=== PATIENT | female | born 1955 | race Caucasian/White ===

== ENCOUNTER 2021-09-25 21:09 | Emergency (ER) | payer OTHER, SELFPAY ==
--- NOTE | ~2021-09-25 | CT_ITS ---
EXAMINATION: CT ABDOMEN AND PELVIS WITH CONTRAST CLINICAL INFORMATION: Back pain, hematuria. COMPARISON: 03/04/2008 TECHNIQUE: Multidetector volumetric images were obtained from the superior aspect of the liver through the pubic symphysis following administration 85 mL of Omnipaque 350 intravenous contrast. Sagittal and coronal reformatted images were obtained on the technologist's workstation. Oral contrast: No This CT examination was performed using dose optimization techniques as appropriate, variously including the following: *Automated exposure control *Adjustment of mA and/or kV according to patient size (this includes techniques or standardized protocols for targeted exams where dose is matched to indication/reason for exam; i.e. extremities or head) *Use of iterative reconstruction technique DLP: 485 mGy-cm FINDINGS: LUNG BASES: Small sliding-type hiatal hernia. Lung bases are clear. LIVER, GALLBLADDER, AND BILIARY TREE: The liver is normal in size, shape, and attenuation. No focal hepatic lesion or biliary ductal dilatation is present. The gallbladder is unremarkable with no evidence of radiopaque gallstones, gallbladder wall thickening, or obvious pericholecystic inflammatory changes. PANCREAS: Unremarkable. SPLEEN: Unremarkable. ADRENAL GLANDS: Unremarkable. KIDNEYS AND URETERS: The kidneys are normal in size, shape, and attenuation. No hydronephrosis, hydroureter, or calculi seen. No perinephric stranding. BLADDER: Unremarkable. GASTROINTESTINAL TRACT: Small sliding-type hiatal hernia. Stomach, small bowel, and colon are normal in caliber. There is marked diverticulosis in the sigmoid colon and within the remainder of the colon to a lesser extent. There is focal peridiverticular inflammation in the distal sigmoid colon as seen on coronal image 54/77 of series 7 which likely corresponds to a component of mild acute diverticulitis. No abscess. No intraperitoneal free fluid or free air. ABDOMINAL WALL: No significant hernia is appreciated. LYMPH NODES: Normal. VASCULAR: Atherosclerotic calcifications are present in the abdominal aorta and iliac arteries. No aneurysmal dilatation. PELVIC VISCERA: The uterus and adnexa are unremarkable. OSSEOUS STRUCTURES: Degenerative disc disease is present in the lumbar spine with left convex lumbar curvature. Facet arthropathy. CT/CT abdomen pelvis w con IMPRESSION: 1. Marked sigmoid diverticulosis with mild acute uncomplicated diverticulitis. 2. Small sliding-type hiatal hernia. 3. Left convex lumbar scoliosis with multilevel degenerative disc disease, most notably in the lower lumbar spine.
--- NOTE | ~2021-09-25 | XR_ITS ---
EXAMINATION: XR CHEST CLINICAL INFORMATION: Chest pain. COMPARISON: CT of the chest dated from 10/21/2014. TECHNIQUE: Frontal view of the chest was obtained. FINDINGS: Normal appearance of the cardiomediastinal silhouette except for some atherosclerotic disease in the aortic arch. No focal airspace opacities, pleural effusions or pneumothorax. No acute osseous abnormalities. The imaged upper abdomen is within normal limits. XR/XR chest 1V IMPRESSION: No acute cardiopulmonary findings.
[2021-09-25 21:15] VITALS: BP 182/92; PULSE 105; RESP 18; TEMP 37.2; O2SAT 98; BMI 24.1
--- NOTE | 2021-09-25 21:22 | ECG_ITS ---
Test Reason : HYPERTENSION Blood Pressure : / mmHG Vent. Rate : 098 BPM Atrial Rate : 098 BPM P-R Int : 122 ms QRS Dur : 068 ms QT Int : 342 ms P-R-T Axes : 063 041 058 degrees QTc Int : 436 ms Normal sinus rhythm Nonspecific ST and T wave abnormality Abnormal ECG When compared with ECG of 11-OCT-2014 22:05, No significant change was found Referred By: Generic ED Physician Electronically Signed By:Cristian Rodriguez
[2021-09-25 21:50] LABS: MANUAL DIFF FLAG NO
[2021-09-25 21:52] LABS: Basophils Percent Auto 0.2 % (0-2); Eosinophils Absolute Auto 0.1 X10*3/uL (0.0-0.4); Eosinophils Percent Auto 1.8 % (0-4); Hematocrit 30.1 % (37.0-47.0); Hemoglobin 9.7 g/dl (12.0-16.0); Imm Gran Abs Auto 0.03 X10*3/uL (0.00-0.03); Imm Gran Pct Auto 0.6 % (0.0-0.4); Lymphocytes Absolute Auto 1.5 X10*3/uL (1.2-4.9); Lymphocytes Percent Auto 30.8 % (20-40); Mean Corpuscular HGB Conc 32.2 g/dl (31.0-35.0); Mean Corpuscular Hemoglobin 31.2 pg (27.0-33.0); Mean Corpuscular Volume 96.8 fL (80.0-98.0); Mean Platelet Volume 8.7 fL (9.4-12.3); Monocytes Absolute Auto 0.3 X10*3/uL (0.1-1.2); Monocytes Percent Auto 6.3 % (2-11); Neutrophils Percent Auto 60.3 % (45-73); Platelet Count 345 X10*3/uL (160-400); Red Blood Count 3.11 X10*6/uL (4.20-5.50); Red Cell Distribution Width 15.6 % (11.0-16.0)
[2021-09-25 22:07] LABS: Anion Gap 12 (12-20); Blood Urea Nitrogen 15 mg/dL (9-16); Calcium 10.7 mg/dL (8.4-10.2); Carbon Dioxide 24 mmol/L (22-29); Chloride 103 mmol/L (96-108); Creatinine Clr Calc Pharmacy 67.2; Estimated Glomerular Filt Rate > 60; Glucose Random 110 mg/dL (60-115); Potassium 3.9 mmol/L (3.3-5.1); Sodium 135 mmol/L (135-145)
[2021-09-25 22:07] LABS: COVID-19 Test Negative (Negative)
[2021-09-25 22:11] LABS: B Type Natriuretic Peptide 33 pg/mL (<100); Troponin-I High Sensitivity < 3.5 ng/L (<3.5-17.0)
[2021-09-26 02:58] VITALS: BP 149/89; PULSE 91; RESP 16; TEMP 36.7; O2SAT 98
[2021-09-26 03:15] LABS: Appearance Urine CLOUDY; Color Urine RED; Glucose Urine UA NEG (NEG); Leukocyte Esterase Urine 2+ (NEG); Nitrite Urine NEG (NEG); PH 6.5 (5.0-8.0); UACC Culture Trigger YES; Urine Blood 3+ (NEG); Urine Ketones NEG (NEG); Urine Protein 1+ MG/DL (NEG-TRACE)
[2021-09-26 03:22] LABS: Bacteria Urine TRACE /LPF; Mucus Urine 1+ /LPF; Squamous Epithelial Cell Urine 2+ /LPF
--- NOTE | 2021-09-26 03:41 | ED_ITS ---
HPI - General Adult General Chief complaint: Dyspnea Stated complaint: hypertension; difficulty breathing Time Seen by Provider: 09/26/21 03:40 Source: patient Mode of arrival: ambulatory History of Present Illness HPI narrative: 65-year-old female who states that she was recently started on a 2nd antihypertensive and states that since being started on the medications she noticed that she began having hematuria but denies any palpitations, dizziness, fatigue, but states that she has been experiencing concomitant wheeze that she associates with her chronic bronchitis that has not been relieved by home inhaler use. However, patient tells me that she used her ProAir while waiting in the waiting room and has since had resolution of her symptoms. Otherwise, she denies any fever, chills, nausea, vomiting, diarrhea, urinary pain/burn ing/frequency. Related Data Previous Rx's Medication Instructions Recorded amoxicillin 875 mg-potassium 1 tab PO Q12H 10 Days #20 tab 09/26/21 clavulanate 125 mg tablet Allergies Allergy/AdvReac Type Severity Reaction Status Date / Time No Known Allergies [NKA] Allergy Unverified 03/24/20 15:19 Review of Systems Review of Systems: Pertinent positives and negatives as stated in HPI 10 point review of systems is otherwise negative. PMFSH Past Medical History Source: nursing notes reviewed Medical History Chronic bronchiolitis Hepatitis Pulmonary embolism Surgical History H/O: hysterectomy Social History Social History Advance Directives: No Advance Directives Information Provided: Yes Physical Exam ED Vital Signs: Vital Signs - 24 hr 09/25/21 21:15 09/26/21 02:58 09/26/21 04:26 Temperature 99 F 98.1 F Pulse Rate 105 H 91 96 Respiratory Rate 18 16 Blood Pressure 182/92 H 149/89 H Pulse Oximetry 98 98 09/26/21 04:56 09/26/21 06:00 Temperature 98.0 F Pulse Rate 99 91 Respiratory Rate 12 14 Blood Pressure 140/79 H 127/71 Pulse Oximetry 95 97 BMI result Body Mass Index 24.1 VITAL SIGNS: Reviewed. GENERAL: Well developed, well nourished, in no acute distress. HEAD: Normocephalic/atraumatic EYES: PERRLA, EOMI EARS: Ext canals without abnormality, TMs non-bulging and non-erythematous NOSE: Nares patent bilateral OROPHARYNX: no oral lesions noted, posterior pharynx clear LUNGS: Good inspiratory effort, expiratory wheeze noted. No tachypnea. SpO2<98> CARDIOVASCULAR: Regular rate and rhythm without noted murmurs ABDOMEN: Soft, non-tender, non-distended with bowel sounds. MUSCULOSKELETAL: No tenderness, deformities, or effusions noted on gross inspection. EXTREMITIES: No cyanosis, clubbing or edema. SKIN: Inspection of the skin reveals no rashes NEUROLOGIC: Alert and oriented x 4. Strength and sensation to light touch were grossly intact x 4. Course Course Course Narrative: 65-year-old female with history and clinical presentation consistent with hematuria and noted wbc's raising the question whether not this is they significant pyelonephritis although there are no associated nausea and vomiting and patient has no fever chills. Will obtain abdomen pelvis CT. Review of all investigations shows a normocytic anemia and on CT scan reportedly diverticulitis. Patient received initial antibiotics here in the emergency room and then was discharged in stable condition with remaining course. In addition, due to patient's level of hematuria patient will be provided with a referral to follow-up with Urology. Medical Decision Making Lab Data Result diagrams: 09/25/21 21:44 09/25/21 21:44 Labs: Lab Results 09/25/21 09/25/21 09/25/21 Range/Units 21:43 21:44 21:44 WBC 5.0 (4.8-10.8) X10*3/uL RBC 3.11 L (4.20-5.50) X10*6/uL Hgb 9.7 L (12.0-16.0) g/dl Hct 30.1 L (37.0-47.0) % MCV 96.8 (80.0-98.0) fL MCH 31.2 (27.0-33.0) pg MCHC 32.2 (31.0-35.0) g/dl RDW 15.6 (11.0-16.0) % Plt Count 345 (160-400) X10*3/uL MPV 8.7 L (9.4-12.3) fL Immature Gran % (Auto) 0.6 H (0.0-0.4) % Neut % (Auto) 60.3 (45-73) % Lymph % (Auto) 30.8 (20-40) % [place] % (Auto) 6.3 (2-11) % Eos % (Auto) 1.8 (0-4) % Baso % (Auto) 0.2 (0-2) % Lymph # (Auto) 1.5 (1.2-4.9) X10*3/uL [place] # (Auto) 0.3 (0.1-1.2) X10*3/uL Eos # (Auto) 0.1 (0.0-0.4) X10*3/uL Baso # (Auto) 0.0 (0.0-0.2) X10*3/uL Abs Immat Gran (auto) 0.03 (0.00-0.03) X10*3/uL Absolute Neuts (auto) 3.0 (2.0-8.3) x10*3/uL Absolute Nucleated RBC 0.000 (0.0-0.012) X10*3/uL Nucleated RBC % (auto) 0.0 (0.0-0.2) /100WBC Sodium 135 (135-145) mmol/L Potassium 3.9 (3.3-5.1) mmol/L Chloride 103 (96-108) mmol/L Carbon Dioxide 24 (22-29) mmol/L Anion Gap 12 (12-20) BUN 15 (9-16) mg/dL Creatinine 0.74 (0.5-1.4) mg/dL Estim Creat Clear Calc 67.2 Estimated GFR > 60 Random Glucose 110 (60-115) mg/dL Calcium 10.7 H (8.4-10.2) mg/dL Troponin I High Sens (<3.5-17.0) ng/L B-Natriuretic Peptide (<100) pg/mL Urine Color Urine Appearance Urine pH (5.0-8.0) Ur Specific [place] (1.005-1.025) Urine Protein (NEG-TRACE) MG/DL Urine Glucose (UA) (NEG) MG/DL Urine Ketones (NEG) MG/DL Urine Blood (NEG) Urine Nitrite (NEG) Ur Leukocyte Esterase (NEG) Urine RBC (0) /HPF Urine WBC (0-4) /HPF Ur Squamous Epith Cells /LPF Urine Bacteria /LPF Urine Mucus /LPF COVID-19 ([facility]) Negative (Negative) COVID-19 Clin Com See Note 09/25/21 09/26/21 Range/Units 21:44 03:08 WBC (4.8-10.8) X10*3/uL RBC (4.20-5.50) X10*6/uL Hgb (12.0-16.0) g/dl Hct (37.0-47.0) % MCV (80.0-98.0) fL MCH (27.0-33.0) pg MCHC (31.0-35.0) g/dl RDW (11.0-16.0) % Plt Count (160-400) X10*3/uL MPV (9.4-12.3) fL Immature Gran % (Auto) (0.0-0.4) % Neut % (Auto) (45-73) % Lymph % (Auto) (20-40) % [place] % (Auto) (2-11) % Eos % (Auto) (0-4) % Baso % (Auto) (0-2) % Lymph # (Auto) (1.2-4.9) X10*3/uL [place] # (Auto) (0.1-1.2) X10*3/uL Eos # (Auto) (0.0-0.4) X10*3/uL Baso # (Auto) (0.0-0.2) X10*3/uL Abs Immat Gran (auto) (0.00-0.03) X10*3/uL Absolute Neuts (auto) (2.0-8.3) x10*3/uL Absolute Nucleated RBC (0.0-0.012) X10*3/uL Nucleated RBC % (auto) (0.0-0.2) /100WBC Sodium (135-145) mmol/L Potassium (3.3-5.1) mmol/L Chloride (96-108) mmol/L Carbon Dioxide (22-29) mmol/L Anion Gap (12-20) BUN (9-16) mg/dL Creatinine (0.5-1.4) mg/dL Estim Creat Clear Calc Estimated GFR Random Glucose (60-115) mg/dL Calcium (8.4-10.2) mg/dL Troponin I High Sens < 3.5 (<3.5-17.0) ng/L B-Natriuretic Peptide 33 (<100) pg/mL Urine Color RED A Urine Appearance CLOUDY Urine pH 6.5 (5.0-8.0) Ur Specific [place] 1.020 (1.005-1.025) Urine Protein 1+ H (NEG-TRACE) MG/DL Urine Glucose (UA) NEG (NEG) MG/DL Urine Ketones NEG (NEG) MG/DL Urine Blood 3+ H (NEG) Urine Nitrite NEG (NEG) Ur Leukocyte Esterase 2+ H (NEG) Urine RBC 76-150 H (0) /HPF Urine WBC 10-14 H (0-4) /HPF Ur Squamous Epith Cells 2+ /LPF Urine Bacteria TRACE /LPF Urine Mucus 1+ /LPF COVID-19 ([facility]) (Negative) COVID-19 Clin Com Discharge Plan Discharge Clinical Impression: Hematuria, Diverticulitis Patient Disposition: Home, Self-Care Instructions: Diverticulitis (ED), Hematuria (ED), Diverticulitis Diet (ED) Additional Instructions: 1. Resume all home medications. 2. Complete the entire course of antibiotics. 3. Please follow-up with your primary care provider this morning by calling the office and setting up an appointment for re-evaluation. 4. You have been provided with a referral to follow-up with Urology regarding the blood in your urine. Continue to stay well hydrated, especially with water. Return to the ER for worsening symptoms. Prescriptions: New amoxicillin-pot clavulanate 875-125 mg tablet 1 tab PO Q12H 10 Days Qty: 20 0RF Referrals: Issa Busch MD [Primary Care Provider] - 2 days Jerardo Simons MD [Physician] - 2 days
[2021-09-26] MEDS: Albuterol Sulfate (0.083%) 2.5 MG/3 ML VIAL.NEB 5 MG INHALE (04:24)
[2021-09-26 04:26] VITALS: PULSE 96; O2SAT 98
[2021-09-26] MEDS: iohexoL 350 MG/ML 100 ML INFUS..BTL 85 ML IV (04:49)
[2021-09-26 04:56] VITALS: BP 140/79; PULSE 99; RESP 12; TEMP 36.7; O2SAT 95
[2021-09-26] MEDS: Amoxicillin/Potassium Clav 875 MG TABLET PO (05:53)
[2021-09-26 06:00] VITALS: BP 127/71; PULSE 91; RESP 14; O2SAT 97
== END 2021-09-26 06:13 | disposition home or self-care (01) ==
PROVIDERS: Emergency Provider Student in an Organized Health Care Education/Training Program; PCP Internal Medicine
DX: K57.32 Diverticulitis of large intestine without perforation or abscess without bleeding (principal); R31.9 Hematuria, unspecified; Z20.822 Contact with and (suspected) exposure to COVID-19; D64.9 Anemia, unspecified; R06.02 Shortness of breath
CPT/HCPCS: 36415; 71045; 74177; 80048; 81001; 81003; 83880; 84484; 85025; 87040; 87086; 87635; 93005; 94640; 99284; Q9967